=== PATIENT | male | born 1975 | race Caucasian/White ===

== ENCOUNTER 2017-02-27 08:12 | Emergency (ER) | payer OTHER ==
[2017-02-27 08:21] VITALS: TEMP 97
[2017-02-27 08:22] VITALS: BMI 36.2
[2017-02-27] MEDS ORDERED: Sodium Chloride 0.9% 1,000 ML IV STA (09:20)
[2017-02-27 09:41] LABS: BASO # 0.1 K/uL (0.0-0.2); BASO % 1.7 % (0.0-2.0); EOS # 0.2 K/uL (0.0-0.7); EOS % 3.4 % (0.0-4.0); HEMOGLOBIN 14.1 g/dL (12.0-18.0); LYMPH # 1.9 K/uL (1.0-4.3); LYMPH % 33.9 % (20.0-40.0); MEAN CELL VOLUME 87.2 fl (80.0-94.0); MEAN CORPUSCULAR HEMOGLOBIN 29.7 pg (27.0-31.0); MEAN CORPUSCULAR HGB CONC 34.1 g/dL (33.0-37.0); MEAN PLATELET VOLUME 8.2 fl (7.2-11.7); MONO # 0.8 K/uL (0.0-0.8); MONO % 13.6 % (0.0-10.0); NEUT # 2.7 K/uL (1.8-7.0); NEUT % 47.4 % (50.0-75.0); NRBC % 0.1 % (0.0-0.0); RBC 4.73 Mil/uL (4.40-5.90); RED CELL DISTRIBUTION WIDTH 14.1 % (11.5-14.5); WHITE BLOOD COUNT 5.7 K/uL (4.8-10.8)
[2017-02-27 09:57] LABS: PARTIAL THROMBOPLASTIN TIME 31.8 Seconds (25.6-37.1); PROTHROMBIN TIME 11.4 Seconds (9.8-13.1)
--- NOTE | 2017-02-27 09:58 | ED PDOC ---
Upper Extremity Pain/Injury Time Seen by Provider: 02/27/17 09:16 Chief Complaint (Nursing): Upper Extremity Problem/Injury Chief Complaint (Provider): R arm pain/ bruising History Per: Patient History/Exam Limitations: no limitations Onset/Duration Of Symptoms: Days (1) Current Symptoms Are (Timing): Still Present Quality: Sharp Exacerbating Factor(s): Strenuous Use Of Affected Area, Movement Additional Complaint(s): 41yo male states was playing softball yesterday, swung at ball and felt like he injured arm but was able to keep playing, awoke this morning w severe brusing to R bicep/ upper arm. Can move arm with some pain to area. Denies weakness/ numbness or paresthesia to distal arm. Denies gingival bleeding, bloody stools or other bruising. Past Medical History Reviewed: Historical Data Vital Signs: Last Vital Signs Temp 97 F L 02/27/17 08:21 Pulse 81 02/27/17 08:21 Resp BP 138/93 H 02/27/17 08:21 Pulse Ox 98 02/27/17 08:21 - Medical History PMH: HTN, Hyperlipidemia - Family History Family History: States: Unknown Family Hx - Living Arrangements Living Arrangements: With Family - Social History Current smoker - smoking cessation education provided: No - Home Medications Home Medications: Ambulatory Orders Medication Instructions Recorded Acetaminophen/Oxycodone Hydr 1 tab PO Q6H PRN #10 tab 07/15/14 [Percocet 325 mg-5 mg] Ciprofloxacin HCl [Cipro] 500 mg PO BID #14 tab 07/15/14 Tamsulosin [Flomax] 0.4 mg PO DAILY #14 cap 07/15/14 - Allergies Allergies/Adverse Reactions: Allergies Allergy/AdvReac Type Severity Reaction Status Date / Time No Known Allergies Allergy Verified 07/15/14 06:00 Review of Systems ROS Statement: Except As Marked, All Systems Reviewed And Found Negative Constitutional: Negative for: Fever, Chills, Weakness Cardiovascular: Negative for: Chest Pain, Palpitations Respiratory: Negative for: Cough, Shortness of Breath Gastrointestinal: Negative for: Nausea, Vomiting Genitourinary Male: Negative for: Dysuria, Frequency Musculoskeletal: Positive for: Arm Pain. Negative for: Neck Pain Skin: Positive for: Bruising. Negative for: Rash, Lesions, Jaundice Neurological: Negative for: Weakness, Numbness Physical Exam - Reviewed Nursing Documentation Reviewed: Yes Vital Signs Reviewed: Yes - Physical Exam Appears: Positive for: Well, Non-toxic, No Acute Distress Head Exam: Positive for: ATRAUMATIC, NORMAL INSPECTION, NORMOCEPHALIC Skin: Positive for: Warm, Dry (+ large ecchymosis / warmth to R bicep/upper arm) Eye Exam: Positive for: EOMI, Normal appearance, PERRL ENT: Positive for: Normal ENT Inspection Neck: Positive for: Normal, Painless ROM Cardiovascular/Chest: Positive for: Regular Rate, Rhythm Respiratory: Positive for: CNT, Normal Breath Sounds Gastrointestinal/Abdominal: Positive for: Normal Exam, Bowel Sounds, Soft Back: Positive for: Normal Inspection Extremity: Positive for: Normal ROM, Tenderness (R bicep), Other (FROM active/ passive R arm/ bicep; + large ecchymosis / warmth to R bicep/upper arm). Negative for: Calf Tenderness, Deformity Neurologic/Psych: Positive for: Alert, Oriented - Laboratory Results Result Diagrams: 02/27/17 09:19 02/27/17 09:19 - ECG O2 Sat by Pulse Oximetry: 98 Medical Decision Making Medical Decision Making: Initiate workup for traumatic injury R upper arm. r/o rhabdomyolysis/ compartment syndrome (less likely given no pain distally, minimal swelling to R bicep), r/o blood dyscrasia/ clotting abnormality, r/o muscle/tendon tear or injury. Disposition - Clinical Impression Clinical Impression: Arm contusion - Patient ED Disposition Is Patient to be Admitted: No Counseled Patient/Family Regarding: Studies Performed, Diagnosis, Need For Followup - Disposition Referrals: Trev Hayes MD [Staff Provider] - Disposition: Routine/Home Disposition Time: 11:00 Condition: STABLE Additional Instructions: Followup with orthopedics in 2-3 days for re-evaluation. Return to ER for any new or worsening symptoms. Use sling. YOU MAY REQUIRE MRI OF ARM IF SYMPTOMS PERSIST TO RULE-OUT MUSCLE OR TENDON INJURY/ TEAR. Instructions: Contusion in Adults (ED) Forms: [employer] (Pashto), [facility] ED School/Work Excuse
[2017-02-27 10:03] LABS: AST/SGOT 28 U/L (17-59); BLOOD UREA NITROGEN 12 mg/dl (9-20); GFR AFRICAN-AMERICAN > 60; GFR NON-AFRICAN AMERICAN > 60
[2017-02-27 10:04] LABS: ALT/SGPT 36 U/L (21-72); CALCIUM 9.4 mg/dL (8.4-10.2)
--- NOTE | 2017-02-27 11:27 | RAD ---
PROCEDURE: Radiographs of the right humerus. There HISTORY: R arm injury COMPARISON: Correlation made with concurrent radiographs of the left elbow. FINDINGS: BONES: No definitive radiographic evidence of acute displaced fracture nor dislocation. The osseous structures appear grossly intact. There is a small elliptical shaped well corticated bony density within the soft tissues adjacent to the medial epicondyle that may represent some old posttraumatic mineralization. No significant osteoarthritis. SOFT TISSUES: There appears to be infiltration changes within the medial soft tissues possibly related to recent trauma. Clinical correlation recommended. No evidence of subcutaneous emphysema or radiopaque foreign bodies. OTHER FINDINGS: None. IMPRESSION: No evidence of acute displaced fracture nor dislocation. Small corticated density within the soft tissues adjacent to the medial epicondyle. This could be secondary to old posttraumatic mineralization There appears to be mild infiltration changes within the medial soft tissues of the at the level of the distal humerus and proximal forearm.
--- NOTE | 2017-02-27 11:32 | RAD ---
PROCEDURE: Radiographs of the right elbow. HISTORY: R arm injury COMPARISON: Correlation made with concurrent radiographs of the left humerus FINDINGS: BONES: No definitive radiographic evidence of acute displaced fracture nor dislocation. The osseous structures appear grossly intact. Re- demonstrated is a small none elliptical shaped well corticated bony density within the soft tissues adjacent to the medial epicondyle that may represent some old posttraumatic mineralization or possibly old avulsion injury. No significant osteoarthritis. JOINTS: Normal. No osteoarthritis. SOFT TISSUES: Mild infiltration changes within the medial soft tissues of the at the level of the distal humerus and proximal forearm. Mild JOINT EFFUSION: No significant joint effusion OTHER FINDINGS: None. IMPRESSION: No evidence of acute displaced fracture nor dislocation. Small corticated density within the soft tissues adjacent to the medial epicondyle.. This could be secondary to old posttraumatic mineralization or old avulsion injury There is mild infiltration changes within the medial soft tissues of the at the level of the distal humerus and proximal forearm.
[2017-02-27 13:31] VITALS: BP 128/69; PULSE 82; RESP 18
--- NOTE | 2017-03-01 15:12 | US ---
PROCEDURE: Ultrasound soft tissue right arm HISTORY: R bicep r/o hematoma COMPARISON: Not available TECHNIQUE: Targeted ultrasound of ventral right humerus, biceps region FINDINGS: There is no mass or fluid collection identified. Subcutaneous edema is noted. IMPRESSION: No evidence of hematoma.
[2017-03-08 11:15] VITALS: O2SAT 98
== END 2017-02-27 13:31 | disposition home or self-care (01) ==
LOC: H.ER 08:12
DX: S59.911A Unspecified injury of right forearm, initial encounter (principal); X50.9XXA Other and unspecified overexertion or strenuous movements or postures, initial encounter; Y92.89 Other specified places as the place of occurrence of the external cause

== ENCOUNTER 2017-04-25 19:27 | Emergency (ER) | payer OTHER ==
[2017-04-25 19:27] VITALS: BMI 36.2
[2017-04-25 19:36] VITALS: BP 119/74; PULSE 72; RESP 18; TEMP 98.8; O2SAT 97
--- NOTE | 2017-04-25 19:53 | ED PDOC ---
Lower Extremity Pain/Injury Time Seen by Provider: 04/25/17 19:40 Chief Complaint (Nursing): Lower Extremity Problem/Injury Chief Complaint (Provider): Bilateral foot pain History Per: Patient History/Exam Limitations: no limitations Onset/Duration Of Symptoms: Days (x 20) Current Symptoms Are (Timing): Still Present Additional Complaint(s): Ermias is a 41 y/o male who presents to the ED complaining of foot pain and swelling bilaterally, ongoing for about 20 days. States pain has been worsening , now its about 10/. Reports he has been taking 3-4 Ibuprofen tabs (800 mg) per day but the pain persists. 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 He has an appointment with a weed cooking operator on 05/05/17, but complains that the pain is becoming too much to wait 10 days. PMD: Clay Alejo Past Medical History Reviewed: Historical Data, Nursing Documentation, Vital Signs Vital Signs: Last Vital Signs Temp 98.8 F 04/25/17 19:33 Pulse 72 04/25/17 19:33 Resp 18 04/25/17 19:33 BP 119/74 04/25/17 19:33 Pulse Ox 97 04/25/17 19:33 - Medical History PMH: HTN, Hyperlipidemia - Family History Family History: States: Unknown Family Hx - Home Medications Home Medications: Ambulatory Orders Medication Instructions Recorded Acetaminophen/Oxycodone Hydr 1 tab PO Q6H PRN #10 tab 07/15/14 [Percocet 325 mg-5 mg] Ciprofloxacin HCl [Cipro] 500 mg PO BID #14 tab 07/15/14 Tamsulosin [Flomax] 0.4 mg PO DAILY #14 cap 07/15/14 Naproxen 1 tab PO BID PRN #14 tab 04/25/17 - Allergies Allergies/Adverse Reactions: Allergies Allergy/AdvReac Type Severity Reaction Status Date / Time No Known Allergies Allergy Verified 07/15/14 06:00 Review of Systems ROS Statement: Except As Marked, All Systems Reviewed And Found Negative Musculoskeletal: Positive for: Foot Pain (Bilaterally w/ swelling to the lateral aspect) Physical Exam - Reviewed Nursing Documentation Reviewed: Yes Vital Signs Reviewed: Yes - Physical Exam Appears: Positive for: Non-toxic, No Acute Distress Head Exam: Positive for: ATRAUMATIC, NORMAL INSPECTION, NORMOCEPHALIC Skin: Positive for: Normal Color, Warm, Dry Eye Exam: Positive for: EOMI, Normal appearance, PERRL Neck: Positive for: Normal, Painless ROM, Supple Extremity: Positive for: Tenderness (to bilateral feet with mild swelling at the lateral aspect) Neurologic/Psych: Positive for: Alert, Oriented - ECG O2 Sat by Pulse Oximetry: 97 (RA) Pulse Ox Interpretation: Normal - Progress ED Course And Treament: Patient does not want xry evaluation of feet. States he will f/u outpatient with podiatry. Medical Decision Making Medical Decision Making: Time: 19:43 Plan: --Pending X-Ray Bilateral Feet Scribe Attestation: Documented by Yulisa Edwards, acting as a scribe for Eric Yeager PA-C Provider Scribe Attestation: All medical record entries made by the Scribe were at my direction and personally dictated by me. I have reviewed the chart and agree that the record accurately reflects my personal performance of the history, physical exam, medical decision making, and the department course for this patient. I have also personally directed, reviewed, and agree with the discharge instructions and disposition. Disposition - Clinical Impression Clinical Impression: Foot pain - Patient ED Disposition Is Patient to be Admitted: No - Disposition Referrals: Podiatry Clinic [Outside] Disposition: Routine/Home Disposition Time: 20:02 Condition: FAIR Prescriptions: Naproxen 1 tab PO BID PRN #14 tab PRN Reason: Pain, Moderate (4-7) Instructions: Foot Sprain (ED) Forms: [employer] (Divehi)
== END 2017-04-25 20:24 | disposition home or self-care (01) ==
LOC: H.ER 19:27
DX: S93.609A Unspecified sprain of unspecified foot, initial encounter (principal); Y92.89 Other specified places as the place of occurrence of the external cause

== ENCOUNTER 2017-07-12 23:09 | Emergency (ER) | payer OTHER ==
[2017-07-12 23:10] VITALS: BMI 36.2
[2017-07-12 23:15] VITALS: RESP 16; TEMP 98
[2017-07-12] MEDS ORDERED: Sodium Chloride 0.9% 1,000 ML IV STA (23:41)
--- NOTE | 2017-07-12 23:43 | ED PDOC ---
"HPI: Abdomen Time Seen by Provider: 07/12/17 23:15 Chief Complaint (Nursing): Abdominal Pain Chief Complaint (Provider): abdominal pain History Per: Patient History/Exam Limitations: no limitations Onset/Duration Of Symptoms: Days (1) Current Symptoms Are (Timing): Still Present Location Of Pain/Discomfort: LLQ, Other (left flank) Additional History Per: Patient Additional Complaint(s): 41 y/o male presents with left-sided abdominal pain x 1 day. Patient notes pain to come and go, improved with ibuprofen, but returns shortly after. Denies fever, nausea/vomiting, chest pain, shortness of breath, changes in bowel movements, urinary symptoms. Past Medical History Reviewed: Historical Data, Nursing Documentation, Vital Signs Vital Signs: Last Vital Signs Temp 98.0 F 07/12/17 23:14 Pulse 90 07/12/17 23:14 Resp 16 07/12/17 23:14 BP 146/96 H 07/12/17 23:14 Pulse Ox 96 07/13/17 01:51 - Medical History PMH: HTN, Hyperlipidemia - Surgical History Surgical History: No Surg Hx - Family History Family History: States: Unknown Family Hx - Home Medications Home Medications: Ambulatory Orders Medication Instructions Recorded Acetaminophen/Oxycodone Hydr 1 tab PO Q6H PRN #10 tab 07/15/14 [Percocet 325 mg-5 mg] Ciprofloxacin HCl [Cipro] 500 mg PO BID #14 tab 07/15/14 Tamsulosin [Flomax] 0.4 mg PO DAILY #14 cap 07/15/14 Naproxen 1 tab PO BID PRN #14 tab 04/25/17 Ibuprofen [Motrin Tab] 1 tab PO Q6 PRN #20 tab 07/13/17 Tamsulosin [Flomax] 0.4 mg PO DAILY #10 cap 07/13/17 oxyCODONE/Acetaminophen [Percocet 1 ea PO Q6 PRN #10 tab 07/13/17 5/325 mg Tab] - Allergies Allergies/Adverse Reactions: Allergies Allergy/AdvReac Type Severity Reaction Status Date / Time No Known Allergies Allergy Verified 07/15/14 06:00 Review of Systems ROS Statement: Except As Marked, All Systems Reviewed And Found Negative Gastrointestinal: Positive for: Abdominal Pain Physical Exam - Reviewed Nursing Documentation Reviewed: Yes Vital Signs Reviewed: Yes - Physical Exam Appears: Positive for: Well, Non-toxic, No Acute Distress Head Exam: Positive for: ATRAUMATIC, NORMAL INSPECTION, NORMOCEPHALIC Skin: Positive for: Normal Color Eye Exam: Positive for: Normal appearance ENT: Positive for: Normal ENT Inspection Cardiovascular/Chest: Positive for: Regular Rate, Rhythm Respiratory: Positive for: Normal Breath Sounds Gastrointestinal/Abdominal: Positive for: Bowel Sounds, Soft, Tenderness (LLQ, left flank) Back: Positive for: Normal Inspection. Negative for: L CVA Tenderness, R CVA Tenderness Extremity: Positive for: Normal ROM Neurologic/Psych: Positive for: Alert, Oriented - Laboratory Results Result Diagrams: 07/12/17 11:58 07/12/17 11:58 - ECG O2 Sat by Pulse Oximetry: 96 - Progress ED Course And Treament: EXAM: CT Abdomen and Pelvis Without Intravenous Contrast EXAM DATE/TIME: Exam ordered 07/13/2017 12:47 AM CLINICAL HISTORY: 41 years old, male; Pain; Abdominal pain; Flank; Left; Additional info: Left flank pain TECHNIQUE: Axial computed tomography images of the abdomen and pelvis without intravenous contrast. All CT scans at this facility use one or more dose reduction techniques, viz.: automated exposure control; ma/kV adjustment per patient size (including targeted exams where dose is matched to indication; i.e. head); or iterative reconstruction technique. Coronal and sagittal reformatted images were created and reviewed. COMPARISON: CT - ABD PELVIS W/O PO OR IV CONT 2014-07-15 07:16 FINDINGS: Lower thorax: The visualized portions of the lung bases are normal. ABDOMEN: Liver: There are no focal liver lesions present. Gallbladder and bile ducts: The gallbladder is normal. There is no evidence of biliary ductal dilation. No calcified stones. Pancreas: The pancreas is normal. No ductal dilation. Spleen: The spleen is normal. Adrenals: The adrenal glands are normal. Kidneys and ureters: There is a 2 x 2 x 4 mm LEFT ureterovesical junction calculus with associated mild LEFT hydroureteronephrosis and perinephric stranding. There are bilateral nonobstructing renal pelvic calculi. Stomach and bowel: The stomach is normal. The duodenum is unremarkable. The colon is normal. No obstruction. No mucosal thickening. Appendix: A normal appendix is identified. PELVIS: GOLD BURT | Preliminary Radiology Report PORTABLE MACHINE SANDER (QA) DISCREPANCY? If there is a discrepancy between the preliminary and final interpretation, please notify [facility] via [email or web address]. If you do not have access to our QA portal, call our QA team at [phone] CONFIDENTIALITY STATEMENT This report is intended only for the use of the referring physician, and only in accordance with law, If you received this in error, call [phone] Page 2 of 2 Bladder: The bladder is normal. Reproductive: The prostate gland and seminal vesicles are normal. ABDOMEN and PELVIS: Intraperitoneal space: Normal. No free air. No significant fluid collection. Bones/joints: No acute fracture. No dislocation. Soft tissues: Normal. Vasculature: Normal. No abdominal aortic aneurysm. Lymph nodes: Normal. No enlarged lymph nodes. IMPRESSION: There is a 2 x 2 x 4 mm LEFT ureterovesical junction calculus with associated mild LEFT hydroureteronephrosis and perinephric stranding. On re-eval, patient states pain returning, IV dilaudid, PO flomax ordered. 2:50 Patient states he is feeing better and would like to go home. Patient educated on findings, discharged with rx Flomax, Percocet, Ibuprofen. Strainer given with instructions on use. Advised follow up urology. Return to ED for worsening/concerning symptoms. Disposition - Clinical Impression Clinical Impression: Kidney calculi - Patient ED Disposition Is Patient to be Admitted: No Counseled Patient/Family Regarding: Studies Performed, Diagnosis, Need For Followup, Rx Given - Disposition Referrals: Pratik Fraser Jr., MD [Staff Provider] - Disposition: Routine/Home Disposition Time: 02:51 Condition: IMPROVED Prescriptions: Ibuprofen [Motrin Tab] 1 tab PO Q6 PRN #20 tab PRN Reason: Pain, Moderate (4-7) oxyCODONE/Acetaminophen [Percocet 5/325 mg Tab] 1 ea PO Q6 PRN #10 tab PRN Reason: Pain, Severe (8-10) Tamsulosin [Flomax] 0.4 mg PO DAILY #10 cap Instructions: Kidney Stones (ED), How to Strain Your Urine (ED), Renal Colic ( ED) Forms: [employer] (Japanese) Print Language: GABONESE"
[2017-07-13 00:28] LABS: BASO # 0.1 K/uL (0.0-0.2); BASO % 0.8 % (0.0-2.0); EOS # 0.1 K/uL (0.0-0.7); EOS % 2.3 % (0.0-4.0); HEMATOCRIT 40.5 % (35.0-51.0); LYMPH # 2.1 K/uL (1.0-4.3); LYMPH % 32.9 % (20.0-40.0); MEAN CELL VOLUME 86.7 fl (80.0-94.0); MEAN CORPUSCULAR HEMOGLOBIN 28.8 pg (27.0-31.0); MEAN CORPUSCULAR HGB CONC 33.2 g/dL (33.0-37.0); MONO # 0.8 K/uL (0.0-0.8); MONO % 12.8 % (0.0-10.0); NEUT # 3.2 K/uL (1.8-7.0); NEUT % 51.2 % (50.0-75.0); NRBC % 0.1 % (0.0-0.0); RED CELL DISTRIBUTION WIDTH 14.9 % (11.5-14.5); WHITE BLOOD COUNT 6.3 K/uL (4.8-10.8)
[2017-07-13 00:37] LABS: RBC URINE 2 /hpf (0-3); URINE BILIRUBIN NEGATIVE (NEGATIVE); URINE BLOOD SMALL (NEGATIVE); URINE COLOR YELLOW (YELLOW); URINE GLUCOSE (UA) NEG (Normal); URINE KETONE NEGATIVE (NEGATIVE); URINE LEUKOCYTE ESTERASE NEG Leu/uL (Negative); URINE PROTEIN NEGATIVE (NEGATIVE); URINE UROBILINOGEN 0.2-1.0 mg/dL (0.2-1.0); WBC URINE < 1 /hpf (0-5)
[2017-07-13 00:38] LABS: ALKALINE PHOSPHATASE 63 U/L (38-126); ALT/SGPT 39 U/L (21-72); AST/SGOT 23 U/L (17-59); BILIRUBIN,TOTAL 0.4 mg/dl (0.2-1.3); BLOOD UREA NITROGEN 14 mg/dl (9-20); CALCIUM 8.9 mg/dL (8.4-10.2); CARBON DIOXIDE 26 mmol/L (22-30); CHLORIDE 104 mmol/L (98-107); GFR AFRICAN-AMERICAN > 60; GLUCOSE,RANDOM 141 mg/dL (75-110); POTASSIUM 3.5 MMOL/L (3.6-5.0); SODIUM 142 mmol/l (132-148); TOTAL PROTEIN 7.7 G/DL (6.3-8.2)
[2017-07-13 03:02] VITALS: BP 137/88; PULSE 81; O2SAT 99
--- NOTE | 2017-07-13 11:30 | CT ---
PROCEDURE: CT Abdomen and Pelvis without intravenous contrast HISTORY: left flank pain COMPARISON: 2013 TECHNIQUE: Technique. Contrast Dose: No contrast was administered. Radiation dose: Total exam DLP = 1242 mGy-cm. This CT exam was performed using one or more of the following dose reduction techniques: Automated exposure control, adjustment of the mA and/or kV according to patient size, and/or use of iterative reconstruction technique. FINDINGS: LOWER THORAX: Unremarkable. LIVER: Unremarkable. No gross lesion or ductal dilatation. GALLBLADDER AND BILE DUCTS: Unremarkable. PANCREAS: Unremarkable. No gross lesion or ductal dilatation. SPLEEN: Unremarkable. ADRENALS: Unremarkable. No mass. KIDNEYS AND URETERS: There is evidence of 2 millimeter left intramural UVJ calculus causing mild left pelvocaliceal dilatation and perinephric changes. A few other nonobstructing bilateral renal calculi are seen. No right ureteral calculus or hydronephrosis is noted. VASCULATURE: Unremarkable. No aortic aneurysm. BOWEL: Unremarkable. No obstruction. No gross mural thickening. APPENDIX: Unremarkable. Normal appendix. PERITONEUM: Unremarkable. No free fluid. No free air. LYMPH NODES: Unremarkable. No enlarged lymph nodes. BLADDER: Unremarkable. REPRODUCTIVE: Unremarkable. BONES: No acute fracture. OTHER FINDINGS: None. IMPRESSION: 2 millimeter left intramural UVJ calculus with mild left hydronephrosis. This agrees with preliminary report.
== END 2017-07-13 03:02 | disposition home or self-care (01) ==
LOC: H.ER 23:09
DX: N20.0 Calculus of kidney (principal); E78.5 Hyperlipidemia, unspecified; I10 Essential (primary) hypertension
CPT/HCPCS: 74176; 80053; 81003; 85025; 87086; 96374; 99282; J1170; J1885; J7040